=== PATIENT | male | born 1970 | race Two or more races ===

== ENCOUNTER → 2017-12-20 08:19 | Outpatient (CLI) | payer OTHER | END | disposition home or self-care (01) | LOC: RAD 08:19 | DX: M54.2 Cervicalgia (principal) ==

== ENCOUNTER 2019-01-22 07:10 | Outpatient (CLI) | payer OTHER | END 2019-01-22 07:13 | disposition home or self-care (01) | LOC: SONOGRAMA 07:10 → MAMO-SONO 07:15 | DX: N28.1 Cyst of kidney, acquired (principal); R31.9 Hematuria, unspecified ==

== ENCOUNTER → 2021-06-25 15:23 | Outpatient (CLI) | payer OTHER | END | disposition home or self-care (01) | LOC: LAB 15:23 | PROVIDERS: ATTEND Urology | DX: R97.20 Elevated prostate specific antigen [PSA] (principal) ==

== ENCOUNTER 2021-08-01 07:25 | Outpatient (CLI) | payer OTHER | END 2021-08-01 07:38 | disposition home or self-care (01) | LOC: SONOGRAMA 07:25 | PROVIDERS: ATTEND Urology | DX: D29.1 Benign neoplasm of prostate (principal); R97.20 Elevated prostate specific antigen [PSA] ==